=== PATIENT | female | born 2000 | race Caucasian/White ===

== ENCOUNTER 2022-04-17 10:13 | Emergency (ER) | payer OTHER, SELFPAY ==
[2022-04-17 10:23] VITALS: BP 128/77; PULSE 116; RESP 20; TEMP 37.8; O2SAT 100
--- NOTE | 2022-04-17 10:27 | ED.URI ---
HPI - URI/Sore Throat General Chief Complaint: Upper Respiratory Infection Stated Complaint: BILAT EARACHE Time Seen by Provider: 04/17/22 10:28 Source: patient, family and RN notes reviewed History of Present Illness HPI Narrative: Patient is a 21-year-old female who presents the urgent care with her father with complaints of bilateral ear pain. Patient states that started 2 nights ago and she has been taking ibuprofen and use a warm compress. Patient states she initially had a mild cough with some congestion which is since resolved. Denies of any known fever, nausea or vomiting. Denies of any ill exposures. No other acute complaints. No acute distress noted. Patient aware of the plan of care. Some parts of this dictation were generated by voice recognition software and may contain typographical and/or grammatical inaccuracies. Related Data Home Medications Medication Instructions Recorded Confirmed albuterol sulfate 90 mcg/actuation inhalation 04/17/22 aerosol inhaler amitriptyline 10 mg tablet mg 04/17/22 fluticasone propionate 44 inhalation 04/17/22 mcg/actuation HFA aerosol inhaler (Flovent HFA) montelukast 10 mg tablet mg 04/17/22 rizatriptan 10 mg tablet mg 04/17/22 Allergies Allergy/AdvReac Type Severity Reaction Status Date / Time amoxicillin Allergy Mild Rash Verified 09/15/18 21:10 clavulanic acid Allergy Mild Rash Verified 09/15/18 21:10 Review of Systems Review of Systems: CONSTITUTIONAL: Denies fever, chills, or sweats. EYES: Denies visual changes, redness, or discharge. ENT: Reports rhinorrhea and bilateral ear pain CARDIOVASCULAR: Denies chest pain, palpitations, or edema. RESPIRATORY: Denies cough or dyspnea. GASTROINTESTINAL: Denies abdominal pain, nausea, vomiting, or diarrhea. GENITOURINARY: Denies dysuria or hematuria. SKIN: Denies rash or itching. MUSCULOSKELETAL: Denies back pain, joint pain, or myalgia. NEUROLOGIC: Denies headache, numbness, or weakness. All other systems reviewed are negative, except as documented in HPI. PMFSH Comments At the time of my signature, I reviewed and agree with the nursing past medical, surgical, social, and family history. There is no relevant family history pertinent to the patient complaint. Exam Narrative: GENERAL: This is a well-nourished, well-developed patient, in no apparent distress. HEAD: normocephalic, atraumatic. EYES: PERRL. Sclera clear/white. Vision is grossly intact. EARS: External ears normal, auditory canals clear and without drainage, left TM normal without perforation. Right TM injected and erythemic with mild effusion. Hearing grossly intact. NOSE: External nose normal with no obvious nasal discharge, nares without redness, no rhinorrhea. THROAT: Mucous membranes moist, posterior pharynx clear. Mild bilateral tonsil stone/exudate with moderate postnasal drainage NECK: Neck supple, non-tender without lymphadenopathy CARDIOVASCULAR: Regular rate and rhythm without murmurs, gallops, or rubs. RESPIRATORY: Clear to auscultation. Breath sounds equal bilaterally. No wheezes, rales, or rhonchi. SKIN: warm, intact with no suspicious lesions or rash, good texture and turgor. NEURO: awake, alert, and oriented to person, place and time. There were no obvious focal neurologic abnormalities. EXTREMITIES: No clubbing, cyanosis, or edema. Course Course Level of Care: Express Care Visit Vital Signs Vital signs: Vital Signs Temperature 100.0 F H 04/17/22 10:23 Pulse Rate 116 H 04/17/22 10:23 Respiratory Rate 20 04/17/22 10:23 Blood Pressure 128/77 04/17/22 10:23 Pulse Oximetry 100 04/17/22 10:23 Temperature 100.0 F H 04/17/22 10:23 Pulse Rate 116 H 04/17/22 10:23 Respiratory Rate 20 04/17/22 10:23 Blood Pressure 128/77 04/17/22 10:23 Pulse Oximetry 100 04/17/22 10:23 Reviewed MDM - URI/Sore Throat MDM Narrative Medical decision making narrative: Advised patient complete the oral antibiotic
== END 2022-04-17 10:37 | disposition home or self-care (01) ==
PROVIDERS: Emergency Provider Nurse Practitioner Family
DX: H66.91 Otitis media, unspecified, right ear (principal)
CPT/HCPCS: 99203; G0463